=== PATIENT | female | born 1965 | race African-American/Black ===

== ENCOUNTER 2018-02-13 13:15 | Emergency (ER) | payer OTHER, MEDICAID, SELFPAY ==
[2018-02-13 13:39] VITALS: BP 165/105; PULSE 96; RESP 18; TEMP 36.7; O2SAT 97; BMI 56.2
--- NOTE | 2018-02-13 13:40 | ED_ITS ---
HPI - SOB/Dyspnea <SUSANA Adams - Last Filed: 02/13/18 22:12> General Chief Complaint: Shortness of Breath/Dyspnea Stated Complaint: SOB, INCREASED BP, BLURRY VISION, HEADACHE Time Seen by Provider: 02/13/18 13:33 Source: patient Mode of arrival: ambulatory Limitations: no limitations History of Present Illness 52-year-old female with history of migraine headaches here for complaint of headache not typical for her over the last several days. She also reports that she has had shortness of breath. She has had issues of shortness of breath over the past several years. 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 she has been seen by pulmonology for this and has prescribed a albuterol inhaler for her symptoms. She states that the inhaler has not helped her symptoms. She denies any cold-like symptoms. No fevers no chills. No chest pain. No nausea vomiting. No diaphoresis. She was seen in the walk-in clinic earlier today and then was sent here for further evaluation. she denies any stressors relievers of her symptoms. She does report that she has had Symptoms of blurred vision over the past several days on and off. she denies having any cough. MD Complaint: shortness of breath Related Data Home Medications Medication Instructions Recorded Confirmed albuterol sulfate HFA 90 2 puff INHALATION Q4-6H PRN 02/13/18 02/13/18 mcg/actuation aerosol inhaler diltiazem CD 360 mg 360 mg PO DAILY 02/13/18 02/13/18 capsule,extended release 24 hr duloxetine 60 mg PO BID 02/13/18 02/13/18 hydrochlorothiazide 25 mg PO DAILY 02/13/18 02/13/18 methylphenidate ER 54 mg 54 mg PO DAILY 02/13/18 02/13/18 tablet,extended release 24 hr oxycodone-acetaminophen 10 mg-325 1 tab PO Q6H PRN 02/13/18 02/13/18 mg tablet Allergies Allergy/AdvReac Type Severity Reaction Status Date / Time morphine AdvReac hives Verified 02/13/18 13:49 Review of Systems <SUSANA Adams - Last Filed: 02/13/18 22:12> Constitutional Reports headache(s) Eyes Denies change in vision, Denies eye discharge, Denies irritation and Denies loss of vision ENT Ears, Nose, Mouth, and Throat: Reports headache(s) and Denies throat swelling Cardiovascular Denies chest pain, Denies irregular heart rhythm, Denies lightheadedness, Denies palpitations, Reports dyspnea and Denies orthopnea Respiratory Reports dyspnea and Denies wheezing Gastrointestinal Gastrointestinal: Denies abdominal pain, Denies change in bowel habits, Denies diarrhea, Denies nausea and Denies vomiting Genitourinary Denies hematuria, Denies flank pain, Denies urinary incontinence and Denies urinary urgency Musculoskeletal Denies back pain, Denies muscle weakness, Denies numbness and Denies tingling Integumentary/Breasts Denies pruritus, Denies erythema, Denies rash and Denies wounds Neurologic Reports headache(s), Denies loss of vision, Denies numbness and Denies tingling Endocrine Denies palpitations Hematologic/Lymphatic Denies easy bruising Allergic/Immunologic Denies urticaria, Denies throat swelling and Denies wheezing Exam <SUSANA Adams - Last Filed: 02/13/18 22:12> Initial Vital Signs Initial Vital Signs: Vital Signs Temperature 98.1 F 02/13/18 13:39 Pulse Rate 96 H 02/13/18 13:39 Respiratory Rate 18 02/13/18 13:39 Blood Pressure 165/105 H 02/13/18 13:39 Pulse Oximetry 97 02/13/18 13:39 Const General: cooperative and well developed Nutritional Appearance: well nourished Orientation: alert, awake, oriented x3 and not confused [facility] Mouth: oral mucosae normal and moist mucous membranes Eyes General: appearance normal, both eyes and all related structures Eyelids: eyelids normal Conjunctivae: conjunctivae normal Sclera: sclerae normal Pupils: PERRL EOM: EOM intact bilaterally Neck Neck: normal visual inspection, trachea midline, No lymphadenopathy, No midline deformity and No JVD Lymphatic: No lymphedema Resp Effort & Inspection: normal respiratory effort, able to speak in complete sentences, no respiratory distress and no use of accessory muscles Auscultation: clear to auscultation bilaterally, no rales, no rhonchi and no wheezes Cardio Rate: regular rate Rhythm: regular rhythm Heart Sounds: no click, no gallops, no murmurs and no rubs Pulses: normal peripheral pulses GI Inspection: non-distended Palpation: soft, no hepatosplenomegaly, No guarding, No pulsatile mass and No tender Auscultation: normal bowel sounds Skin General: no rashes or lesions noted, No jaundice and No petechiae Neuro General: alert, oriented x3, gait normal and no focal motor deficits Speech: speech normal <Avery Soto DO - Last Filed: 02/14/18 07:15> Initial Vital Signs Initial Vital Signs: Vital Signs Temperature 98.1 F 02/13/18 13:39 Pulse Rate 96 H 02/13/18 13:39 Respiratory Rate 18 02/13/18 13:39 Blood Pressure 165/105 H 02/13/18 13:39 Pulse Oximetry 97 02/13/18 13:39 Scores <SUSANA Adams - Last Filed: 02/13/18 22:12> HEART Score Heart Score history: Slightly Suspicious Heart Score EKG: Normal Heart Score Age: 45-64 years old Heart Score risk factors: 1-2 risk factors Heart Score troponin: < or = to normal limit Heart Score Total: 2 Course <SUSANA Adams - Last Filed: 02/13/18 22:12> Orders Ordered: Discontinued Medications Albuterol/Ipratropium (Duoneb) 3 ml INH NOW ONE Stop: 02/13/18 14:04 Last Admin: 02/13/18 16:06 Dose: 3 ml Diphenhydramine HCl (Benadryl) 25 mg IV NOW ONE Stop: 02/13/18 15:15 Last Admin: 02/13/18 16:06 Dose: 25 mg Sodium Chloride (Normal Saline 0.9%) 1,000 mls @ 1,000 mls/hr IV BOLUS ONE Stop: 02/13/18 16:13 Last Infusion: 02/13/18 18:43 Dose: 0 mls/hr Admin: 02/13/18 16:21 Dose: 1,000 mls/hr Ketorolac Tromethamine (Toradol) 15 mg IV NOW ONE Stop: 02/13/18 15:16 Last Admin: 02/13/18 16:06 Dose: 15 mg Vital Signs - 8 hr 02/13/18 14:30 02/13/18 15:30 02/13/18 16:45 Pulse Rate 77 92 H 88 Respiratory Rate 26 H 27 H 29 H Blood Pressure [Left Arm] 166/106 H 166/86 H 166/86 H Pulse Oximetry 99 98 93 02/13/18 17:30 Pulse Rate 80 Respiratory Rate 28 H Blood Pressure [Left Arm] 158/89 H Pulse Oximetry 99 <Avery Soto DO - Last Filed: 02/14/18 07:15> Orders Ordered: Discontinued Medications Albuterol/Ipratropium (Duoneb) 3 ml INH NOW ONE Stop: 02/13/18 14:04 Last Admin: 02/13/18 16:06 Dose: 3 ml Diphenhydramine HCl (Benadryl) 25 mg IV NOW ONE Stop: 02/13/18 15:15 Last Admin: 02/13/18 16:06 Dose: 25 mg Sodium Chloride (Normal Saline 0.9%) 1,000 mls @ 1,000 mls/hr IV BOLUS ONE Stop: 02/13/18 16:13 Last Infusion: 02/13/18 18:43 Dose: 0 mls/hr Admin: 02/13/18 16:21 Dose: 1,000 mls/hr Ketorolac Tromethamine (Toradol) 15 mg IV NOW ONE Stop: 02/13/18 15:16 Last Admin: 02/13/18 16:06 Dose: 15 mg Vital Signs - 8 hr 02/13/18 14:30 02/13/18 15:30 02/13/18 16:45 Pulse Rate 77 92 H 88 Respiratory Rate 26 H 27 H 29 H Blood Pressure [Left Arm] 166/106 H 166/86 H 166/86 H Pulse Oximetry 99 98 93 02/13/18 17:30 Pulse Rate 80 Respiratory Rate 28 H Blood Pressure [Left Arm] 158/89 H Pulse Oximetry 99 MDM - SOB/Dyspnea <SUSANA Adams - Last Filed: 02/13/18 22:12> Lab Data Result diagrams: 02/13/18 14:30 02/13/18 14:30 Lab Results 02/13/18 02/13/18 Range/Units 14:30 14:30 WBC 7.5 (4.5-11.0) X10^3/uL RBC 5.39 H (4.0-5.2) X10^6/uL Hgb 12.3 (12.0-16.0) g/dL Hct 39.8 (36-46) % MCV 73.9 L (80-100) fL MCH 22.8 L (26-34) PG MCHC 30.9 (30-36) % RDW 17.0 H (11.6-14.8) % Plt Count 340 (150-400) X10^3/uL Neut % (Auto) 63.0 (50-75) % Lymph % (Auto) 28.9 (25-40) % [place] % (Auto) 5.4 (3-14) % Eos % (Auto) 2.1 (2-4) % Baso % (Auto) 0.6 (0-2) % Neut # (Auto) 4700 (0916-6218) /uL Sodium 145 (137-145) mmol/L Potassium 3.8 (3.4-5.1) mmol/L Chloride 102 (98-107) mmol/L Carbon Dioxide 34 H (22-32) mmol/L BUN 17 (7-17) mg/dL Creatinine 1.10 H (0.52-1.04) mg/dL Estimated GFR 52.6 L (>60) mL/min BUN/Creatinine Ratio 15.5 (6-22) Glucose 135 H (70-100) mg/dL Calcium 9.2 (8.4-10.2) mg/dL Magnesium 1.8 (1.6-2.3) mg/dL Total Bilirubin 0.3 (0.2-1.3) mg/dL AST 20 (14-36) IU/L ALT 24 (9-52) IU/L Alkaline Phosphatase 112 (38-126) U/L Total Creatine Kinase 143 H (30-135) U/L CK-MB (CK-2) 0.76 (<2.37) ng/mL CK-MB (CK-2) Rel Index 0.5 L (1.5-5.0) % Troponin I < 0.012 (0.01-0.034) ng/mL Total Protein 8.3 H (6.3-8.2) g/dL Albumin 4.3 (3.5-5.0) g/dL Globulin 4.0 (1.7-4.1) g/dL Albumin/Globulin Ratio 1.1 (1.0-2.8) Imaging Data CT scan - head: Radiologist's impression: [place] [id number] CT Scan Report Signed Patient: Angie Cartwright [facility]#: [id number] : 1965Acct:[id number] Age/Sex: 52 / FDate of Service: 02/13/18 Loc: ED Accession Number: [id number] Procedure: CT head/brain wo con Ordering Provider: Mitchel Chao PROCEDURE: CT HEAD/BRAIN WO CON INDICATIONS: shortness of breath, headache, elevated blood pressure TECHNIQUE: Noncontrast 4.5 mm thick angled axial sections acquired from the foramen magnum to the vertex, with coronal and sagittal reformats. For radiation dose reduction, the following was used: automated exposure control, adjustment of mA and/or kV according to patient size. COMPARISON: None. FINDINGS: Image quality: Excellent. CSF spaces: Basal cisterns are patent. No extra-axial fluid collections. Ventricles are normal in size and shape. Brain: No midline shift. No intracranial masses or hemorrhage. Thomason-white matter interface is normal. Skull and face: Calvarium and visualized facial bones are intact, without suspicious lesions. Sinuses: Visualized sinuses and mastoids are clear. IMPRESSION: Normal for age, source of current symptoms is not seen. No intracranial hemorrhage found. Dictated by: Shaun Ames M.D. on 02/13/2018 at 14:22 Approved by: Shaun Ames M.D. on 02/13/2018 at 14:23 Abdominal x-ray: Radiologist's impression: Signed Patient: Angie Cartwright [facility]#: [id number] : 1965Acct:[id number] Age/Sex: 52 / FDate of Service: 02/13/18 Loc: ED Accession Number: [id number] Procedure: XR acute abdomen series Ordering Provider: Mitchel Chao PROCEDURE: XR ACUTE ABDOMEN SERIES INDICATIONS: sob, elevated blood pressure, abdominal pain TECHNIQUE: One view chest and two views of the abdomen were acquired. COMPARISON: JAMES Esquivel, CHEST 2VW, 02/25/2017, 4:35 PM. FINDINGS: Surgical changes and devices: None. Chest: Lungs are again seen to demonstrate a chronic elevation of the left hemidiaphragm. Heart size is normal. No pleural effusions. No pneumoperitoneum. Abdomen: Bowel gas pattern is again noted to demonstrate relative gas prominence throughout the colon but without small bowel distention. No suspicious calcifications. Visualized solid organ contours appear normal. Bones: No suspicious bony lesions. IMPRESSION: A chronic pattern of gas prominence within the colon has been present in this patient, with asymmetric elevation of the left hemidiaphragm. No definite acute disease. Depending on the clinical status however CT followup may be warranted. Dictated by: Shaun Ames M.D. on 02/13/2018 at 14:34 Approved by: Shaun Ames M.D. on 02/13/2018 at 14:35 ECG Data Interpretation: EKG shows normal sinus rhythm no ST elevation or depression. No ectopy. Ventricular rate of 96. Pr interval 165. QRS duration of 89. QT 360. MDM Narrative Medical decision making narrative: Acute abdominal series was obtained was negative for any acute findings and shows findings consistent with prior findings of a elevation of the left diaphragm. CT scan of the head was obtained was negative for any acute findings. CBC and Chem panel were obtained were unremarkable. Cardiac enzymes were obtained were negative. BMP was obtained was negative. she was given fluids and Benadryl along with Toradol which helped her headache. Headache presents as a migraine headache. she had elevated respiratory rate here today however talking with the patient she states that this is normal for her and has had this problem for the last couple of years. Shortness of breath presents as chronic shortness of breath due to her elevated left diaphragm. Follow up with primary care provider next couple of days and consideration of further evaluation by pulmonology. for any worsening symptoms return emergency room. <Avery Soto, - Last Filed: 02/14/18 07:15> Lab Data Lab Results 02/13/18 02/13/18 Range/Units 14:30 14:30 WBC 7.5 (4.5-11.0) X10^3/uL RBC 5.39 H (4.0-5.2) X10^6/uL Hgb 12.3 (12.0-16.0) g/dL Hct 39.8 (36-46) % MCV 73.9 L (80-100) fL MCH 22.8 L (26-34) PG MCHC 30.9 (30-36) % RDW 17.0 H (11.6-14.8) % Plt Count 340 (150-400) X10^3/uL Neut % (Auto) 63.0 (50-75) % Lymph % (Auto) 28.9 (25-40) % [place] % (Auto) 5.4 (3-14) % Eos % (Auto) 2.1 (2-4) % Baso % (Auto) 0.6 (0-2) % Neut # (Auto) 4700 (3179-1334) /uL Sodium 145 (137-145) mmol/L Potassium 3.8 (3.4-5.1) mmol/L Chloride 102 (98-107) mmol/L Carbon Dioxide 34 H (22-32) mmol/L BUN 17 (7-17) mg/dL Creatinine 1.10 H (0.52-1.04) mg/dL Estimated GFR 52.6 L (>60) mL/min BUN/Creatinine Ratio 15.5 (6-22) Glucose 135 H (70-100) mg/dL Calcium 9.2 (8.4-10.2) mg/dL Magnesium 1.8 (1.6-2.3) mg/dL Total Bilirubin 0.3 (0.2-1.3) mg/dL AST 20 (14-36) IU/L ALT 24 (9-52) IU/L Alkaline Phosphatase 112 (38-126) U/L Total Creatine Kinase 143 H (30-135) U/L CK-MB (CK-2) 0.76 (<2.37) ng/mL CK-MB (CK-2) Rel Index 0.5 L (1.5-5.0) % Troponin I < 0.012 (0.01-0.034) ng/mL Total Protein 8.3 H (6.3-8.2) g/dL Albumin 4.3 (3.5-5.0) g/dL Globulin 4.0 (1.7-4.1) g/dL Albumin/Globulin Ratio 1.1 (1.0-2.8) Discharge Plan Departure Patient Disposition: Home Clinical Impression: Headache, migraine, Elevated diaphragm Discharge Date/Time: 02/13/18 17:40 Interventions: ED Discharge Assessment Last Done: 02/13/18 17:40 Instructions: Migraine -- Adult Activity Restrictions/Additional Instructions: CT scan of the head was obtained was negative for any acute findings. Headache presents as a migraine headache. home to quiet environment with rest plenty of fluids. Chest and abdominal x-ray shows finding consistent with prior x-rays that shows the elevated diaphragm. Signs and symptoms of shortness of breath present as shortness of breath secondary to the elevated diaphragm. Recommend follow-up primary care provider in the next few days for re-evaluation and discussion of referral to pulmonology for further evaluation. Blood pressure was elevated today in the emergency room also recommend discussing with primary care provider blood pressure control. For any worsening symptoms return to the emergency room. Prescriptions: No Action methylphenidate HCl [Concerta] 54 mg tablet extended release 24hr 54 mg PO DAILY RF: 0 diltiazem HCl 360 mg capsule,extended release 24hr 360 mg PO DAILY RF: 0 oxycodone-acetaminophen [Percocet] 10-325 mg tablet 1 tab PO Q6H PRN (Reason: pain) RF: 0 albuterol sulfate 90 mcg/actuation HFA aerosol inhaler 2 puff INHALATION Q4-6H PRN (Reason: Shortness Of Breath) RF: 0 duloxetine 60 mg PO BID RF: 0 hydrochlorothiazide 25 mg PO DAILY RF: 0 Referrals: Mike Willson MD [Primary Care Provider] - Stand Alone Forms: Work/School Restrictions <Avery Soto DO - Last Filed: 02/14/18 07:15> Cosign ED Attending Luis Attestation: I was available for consultation during this patient's emergency department encounter
--- NOTE | 2018-02-13 14:03 | DI.RAD.S_ITS ---
PROCEDURE: XR ACUTE ABDOMEN SERIES INDICATIONS: sob, elevated blood pressure, abdominal pain TECHNIQUE: One view chest and two views of the abdomen were acquired. COMPARISON: JAMES Esquivel, CHEST 2VW, 02/25/2017, 4:35 PM. FINDINGS: Surgical changes and devices: None. Chest: Lungs are again seen to demonstrate a chronic elevation of the left hemidiaphragm. Heart size is normal. No pleural effusions. No pneumoperitoneum. Abdomen: Bowel gas pattern is again noted to demonstrate relative gas prominence throughout the colon but without small bowel distention. No suspicious calcifications. Visualized solid organ contours appear normal. Bones: No suspicious bony lesions. IMPRESSION: A chronic pattern of gas prominence within the colon has been present in this patient, with asymmetric elevation of the left hemidiaphragm. No definite acute disease. Depending on the clinical status however CT followup may be warranted. Dictated by: Shaun Ames M.D. on 02/13/2018 at 14:34 Approved by: Shaun Ames M.D. on 02/13/2018 at 14:35
--- NOTE | 2018-02-13 14:10 | DI.CT.S_ITS ---
PROCEDURE: CT HEAD/BRAIN WO CON INDICATIONS: shortness of breath, headache, elevated blood pressure TECHNIQUE: Noncontrast 4.5 mm thick angled axial sections acquired from the foramen magnum to the vertex, with coronal and sagittal reformats. For radiation dose reduction, the following was used: automated exposure control, adjustment of mA and/or kV according to patient size. COMPARISON: None. FINDINGS: Image quality: Excellent. CSF spaces: Basal cisterns are patent. No extra-axial fluid collections. Ventricles are normal in size and shape. Brain: No midline shift. No intracranial masses or hemorrhage. Thomason-white matter interface is normal. Skull and face: Calvarium and visualized facial bones are intact, without suspicious lesions. Sinuses: Visualized sinuses and mastoids are clear. IMPRESSION: Normal for age, source of current symptoms is not seen. No intracranial hemorrhage found. Dictated by: Shaun Ames M.D. on 02/13/2018 at 14:22 Approved by: Shaun Ames M.D. on 02/13/2018 at 14:23
[2018-02-13 14:30] VITALS: BP 166/106; PULSE 77; RESP 26; O2SAT 99
[2018-02-13 14:58] LABS: Alanine Aminotransferase 24 IU/L (9-52); Albumin 4.3 g/dL (3.5-5.0); Albumin Globulin Ratio 1.1 (1.0-2.8); Alkaline Phosphatase 112 U/L (38-126); Aspartate Aminotransferase 20 IU/L (14-36); BUN Creatinine Ratio 15.5 (6-22); Bilirubin Total 0.3 mg/dL (0.2-1.3); Blood Urea Nitrogen 17 mg/dL (7-17); Calcium 9.2 mg/dL (8.4-10.2); Carbon Dioxide 34 mmol/L (22-32); Chloride 102 mmol/L (98-107); Creatine Kinase 143 U/L (30-135); Estimated Glomerular Filt Rate 52.6 mL/min (>60); Glucose 135 mg/dL (70-100); HEMOLYSIS < 15 (0-50); Magnesium 1.8 mg/dL (1.6-2.3); Potassium 3.8 mmol/L (3.4-5.1); Sodium 145 mmol/L (137-145); Total Protein 8.3 g/dL (6.3-8.2)
[2018-02-13 15:03] LABS: Add Manual Diff / Slide Review NO; Basophils Percent Auto 0.6 % (0-2); Eosinophils Percent Auto 2.1 % (2-4); Hematocrit 39.8 % (36-46); Hemoglobin 12.3 g/dL (12.0-16.0); Lymphocytes Percent Auto 28.9 % (25-40); Mean Corpuscular HGB Conc 30.9 % (30-36); Mean Corpuscular Hemoglobin 22.8 PG (26-34); Mean Corpuscular Volume 73.9 fL (80-100); Monocytes Percent Auto 5.4 % (3-14); Neutrophils Absolute Auto 4700 /uL (3000-5900); Platelet Count 340 X10^3/uL (150-400); Red Blood Cell Count 5.39 X10^6/uL (4.0-5.2); White Blood Cell Count 7.5 X10^3/uL (4.5-11.0)
[2018-02-13 15:10] LABS: Troponin I < 0.012 ng/mL (0.01-0.034)
[2018-02-13 15:13] LABS: CKMB % Relative Index 0.5 % (1.5-5.0); Creatine Kinase MB 0.76 ng/mL (<2.37)
[2018-02-13 15:30] VITALS: BP 166/86; PULSE 92; RESP 27; O2SAT 98
[2018-02-13] MEDS: ALBUTEROL/IPRATROPIUM 3 ML AMPUL INH (16:06)
[2018-02-13] MEDS: diphenhydrAMINE 50 MG/ML VIAL 25 MG IV (16:06)
[2018-02-13] MEDS: KETOROLAC 60 MG/2 ML VIAL 15 MG IV (16:06)
[2018-02-13] MEDS: SODIUM CHLORIDE 0.9% 1,000 ML 1000 ML IV (16:21)
[2018-02-13 16:45] VITALS: BP 166/86; PULSE 88; RESP 29; O2SAT 93
[2018-02-13 17:30] VITALS: BP 158/89; PULSE 80; RESP 28; O2SAT 99
== END 2018-02-13 17:40 | disposition home or self-care (01) ==
PROVIDERS: Emergency Provider Nurse Practitioner Family; PCP Family Medicine
DX: G43.909 Migraine, unspecified, not intractable, without status migrainosus (principal); J98.6 Disorders of diaphragm
CPT/HCPCS: 36591; 70450; 74022; 80053; 82550; 82553; 83735; 84484; 85025; 93005; 93010; 96361; 96374; 96375; 99283; 99285; J1200; J1885